=== PATIENT | male | born 1995 | race Caucasian/White ===

== ENCOUNTER 2018-12-01 21:08 | Emergency (ER) | payer OTHER ==
--- NOTE | 2018-12-01 22:52 | XRay Report ---
FINAL REPORT EXAM: XR SPINE LUMBOSACRAL 2-3V HISTORY: lower back pain TECHNIQUE: Lumbar spine three views PRIORS: None. FINDINGS: Vertebral bodies demonstrate normal height and alignment. The disc spaces are within normal limits. There is no evidence of spondylolisthesis. Transverse and spinous processes are intact SI joints are unremarkable. IMPRESSION: Negative lumbar spine series
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
[2018-12-01] MEDS ORDERED: IBUPROFEN PO ONE (23:46)
[2018-12-02 00:55] VITALS: BP 124/76
== END 2018-12-02 00:56 | disposition home or self-care (01) ==
LOC: ED 21:08
DX: M62.830 Muscle spasm of back (principal); F12.10 Cannabis abuse, uncomplicated; V49.49XA Driver injured in collision with other motor vehicles in traffic accident, initial encounter; Y93.89 Activity, other specified; Y92.410 Unspecified street and highway as the place of occurrence of the external cause; Y99.8 Other external cause status
CPT/HCPCS: 72100